=== PATIENT | female | born 1985 | race American Indian/Alaskan Native ===

== ENCOUNTER 2018-06-06 22:26 | Emergency (ER) | payer SELFPAY ==
[2018-06-06] MEDS ORDERED: DECADRON IM ONE (22:40)
[2018-06-06] MEDS ORDERED: BENADRYL PO ONE (22:40)
[2018-06-06 22:43] VITALS: BP 114/75
--- NOTE | 2018-06-06 22:43 | Emergency Department Report ---
Stated Complaint: SPIDER BITE Time Seen by Provider: 06/06/18 22:39 - HPI History of Present Illness: This is a 32 y.o. female that presents to the ER with a pruitic rash to left hand. Patient applied hydrocortisone to area. Denies difficulty swallowing, SOB, chest pain, or tongue swelling. - ROS Review of Systems: rash to left hand - Exam Vital Signs: Vital Signs 06/06/18 22:41 Temperature 97.6 F Pulse Rate 69 Respiratory 18 Rate Blood Pressure 114/75 O2 Sat by Pulse 100 Oximetry MSE screening note: Focused history and physical exam performed. Due to findings the following was ordered: Given dexamethasone and benadryl ED Disposition for MSE Condition: Stable
== END 2018-06-07 01:15 | disposition left against medical advice (07) ==
LOC: ED 22:26
DX: T63.301A Toxic effect of unspecified spider venom, accidental (unintentional), initial encounter (principal); Z53.21 Procedure and treatment not carried out due to patient leaving prior to being seen by health care provider
CPT/HCPCS: J1100